=== PATIENT | male | born 1970 | race Caucasian/White ===

== ENCOUNTER 2019-07-15 17:32 | Inpatient (IN) | payer BC ==
[2019-07-15] MEDS ORDERED: NITROGLYCERIN (SL) 0.4 MG TAB SL ×2 (19:00→21:30)
[2019-07-15] MEDS: ONDANSETRON 4 MG INJ IV (19:11)
[2019-07-15] MEDS: morphine 4 MG/ML VIAL IV (19:12)
[2019-07-15] MEDS: FUROSEMIDE 40 MG INJ IV (19:12)
[2019-07-15] MEDS: ASPIRIN 81 MG TAB PO (19:12)
[2019-07-15] MEDS: NITROGLYCERIN 2% 1 GM OINT PKT TD (19:13)
[2019-07-15] MEDS ORDERED: ONDANSETRON 4 MG INJ IV ×2 (19:30→21:30)
[2019-07-15] MEDS ORDERED: ACETAMINOPHEN 325 MG TAB PO ×2 (19:30→21:30)
[2019-07-15] MEDS ORDERED: NACL 0.9% 3 ML SYG IV (21:30)
[2019-07-15] MEDS ORDERED: DOCUSATE SODIUM 100 MG CAP PO (21:30)
[2019-07-15] MEDS ORDERED: GLUCAGON 1 MG INJ IM (22:00)
[2019-07-15] MEDS ORDERED: DEXTROSE 50% 50 ML SYRINGE IV ×2 (22:00)
[2019-07-15] MEDS ORDERED: GLUCOSE GEL 15 GRAM TUBE PO ×2 (22:00)
[2019-07-15] MEDS ORDERED: GLUCOSE GEL 15 GRAM TUBE BUCCAL (22:00)
[2019-07-16] MEDS: ACCU-CHEK XX (02:00)
[2019-07-16] MEDS ORDERED: ACCU-CHEK XX (02:00)
[2019-07-16] MEDS: morphine 2 MG INJ IV ×3 (03:04→20:48)
[2019-07-16] MEDS: POLYETHYLENE GLYCOL 17 GM PACKET PO ×2 (03:05→17:24)
[2019-07-16] MEDS: DOCUSATE SODIUM 100 MG CAP PO (03:05)
[2019-07-16] MEDS: CEFTRIAXONE 1 GM/50 ML (PMX) 50 ML IVPB (03:06)
[2019-07-16] MEDS: SOD CHLORIDE 0.9% 100 ML (03:16)
[2019-07-16] MEDS: IOHEXOL 300MG/ML 30 ML BTL (03:16)
[2019-07-16] MEDS: FUROSEMIDE 20 MG INJ IV ×2 (05:55→17:24)
[2019-07-16] MEDS ORDERED: FUROSEMIDE 20 MG INJ IV (06:00)
[2019-07-16] MEDS ORDERED: INSULIN ASPART [NOVOLOG] 3 ML PEN SC (08:00)
[2019-07-16] MEDS: MAGNESIUM SULFATE 4 GM/100 ML 100 ML IVPB (08:12)
[2019-07-16] MEDS: ASPIRIN 81 MG TAB PO (08:12)
[2019-07-16] MEDS: ENOXAPARIN 40 MG/0.4 ML SYG SC (08:25)
[2019-07-16] MEDS ORDERED: INSULIN GLARGINE [LANTus] (100 UNITS/ML) SYG SC ×2 (09:00)
[2019-07-16] MEDS: INSULIN ASPART [NOVOLOG] 3 ML PEN SC ×4 (09:22→20:45)
[2019-07-16] MEDS: INSULIN GLARGINE [LANTus] (100 UNITS/ML) SYG SC (15:20)
[2019-07-16] MEDS: LISINOPRIL 5 MG TAB PO (15:21)
[2019-07-16] MEDS: ATORVASTATIN 40 MG TAB PO (20:41)
[2019-07-16] MEDS: GABAPENTIN 300 MG CAP PO (20:41)
[2019-07-17] MEDS: ACCU-CHEK XX ×4 (01:15→20:27)
[2019-07-17] MEDS: CEFTRIAXONE 1 GM/50 ML (PMX) 50 ML IVPB (01:47)
[2019-07-17] MEDS: FUROSEMIDE 20 MG INJ IV ×2 (05:24→17:11)
[2019-07-17] MEDS: INSULIN ASPART [NOVOLOG] 3 ML PEN SC ×4 (08:00→20:26)
[2019-07-17] MEDS: POLYETHYLENE GLYCOL 17 GM PACKET PO (08:42)
[2019-07-17] MEDS: morphine 2 MG INJ IV ×2 (08:42→20:17)
[2019-07-17] MEDS: ASPIRIN 81 MG TAB PO (08:42)
[2019-07-17] MEDS: LISINOPRIL 5 MG TAB PO (08:42)
[2019-07-17] MEDS: ENOXAPARIN 40 MG/0.4 ML SYG SC (08:49)
[2019-07-17] MEDS: MAGNESIUM HYDROXIDE 30ML CUP PO (10:00)
[2019-07-17] MEDS: INSULIN GLARGINE [LANTus] (100 UNITS/ML) SYG SC (10:51)
[2019-07-17] MEDS: BISACODYL (EC) 5 MG TAB PO (11:49)
[2019-07-17] MEDS: metFORMIN 500 MG TAB PO (17:11)
[2019-07-17] MEDS: GABAPENTIN 300 MG CAP PO (20:17)
[2019-07-17] MEDS: ATORVASTATIN 40 MG TAB PO (20:17)
[2019-07-17] MEDS: DOCUSATE SODIUM 100 MG CAP PO (20:18)
[2019-07-18] MEDS: CEFTRIAXONE 1 GM/50 ML (PMX) 50 ML IVPB (02:25)
[2019-07-18] MEDS: ACCU-CHEK XX ×5 (02:25→20:59)
[2019-07-18] MEDS: FUROSEMIDE 20 MG INJ IV (06:15)
[2019-07-18] MEDS: INSULIN ASPART [NOVOLOG] 3 ML PEN SC ×4 (07:32→20:59)
[2019-07-18] MEDS: POLYETHYLENE GLYCOL 17 GM PACKET PO (08:07)
[2019-07-18] MEDS: ASPIRIN 81 MG TAB PO (08:07)
[2019-07-18] MEDS: DOCUSATE SODIUM 100 MG CAP PO ×2 (08:07→20:53)
[2019-07-18] MEDS: metFORMIN 500 MG TAB PO ×2 (08:08→17:40)
[2019-07-18] MEDS: LISINOPRIL 5 MG TAB PO (08:09)
[2019-07-18] MEDS: ENOXAPARIN 40 MG/0.4 ML SYG SC (08:14)
[2019-07-18] MEDS: INSULIN GLARGINE [LANTus] (100 UNITS/ML) SYG SC (09:53)
[2019-07-18] MEDS: SPIRONOLACTONE 25 MG TAB PO (12:42)
[2019-07-18] MEDS: morphine 2 MG INJ IV ×2 (12:43→22:08)
[2019-07-18] MEDS: GABAPENTIN 300 MG CAP PO (20:53)
[2019-07-18] MEDS: ATORVASTATIN 40 MG TAB PO (20:54)
[2019-07-19] MEDS: CEFTRIAXONE 1 GM/50 ML (PMX) 50 ML IVPB (01:43)
[2019-07-19] MEDS: ACCU-CHEK XX ×5 (01:43→21:12)
[2019-07-19] MEDS: INSULIN ASPART [NOVOLOG] 3 ML PEN SC ×4 (08:00→21:24)
[2019-07-19] MEDS: metFORMIN 500 MG TAB PO (08:00)
[2019-07-19] MEDS: POLYETHYLENE GLYCOL 17 GM PACKET PO (08:41)
[2019-07-19] MEDS: LISINOPRIL 5 MG TAB PO (08:42)
[2019-07-19] MEDS: FUROSEMIDE 20 MG INJ IV ×2 (08:42→21:09)
[2019-07-19] MEDS: ASPIRIN 81 MG TAB PO (08:42)
[2019-07-19] MEDS: DOCUSATE SODIUM 100 MG CAP PO ×2 (08:42→21:08)
[2019-07-19] MEDS: SPIRONOLACTONE 25 MG TAB PO (08:42)
[2019-07-19] MEDS: ENOXAPARIN 40 MG/0.4 ML SYG SC (08:43)
[2019-07-19] MEDS: INSULIN GLARGINE [LANTus] (100 UNITS/ML) SYG SC (08:44)
[2019-07-19] MEDS: morphine 2 MG INJ IV ×2 (08:53→18:37)
[2019-07-19] MEDS ORDERED: IODIXANOL LOCM 100 ML BTL (10:03)
[2019-07-19] MEDS ORDERED: VERAPAMIL 5 MG INJ (10:03)
[2019-07-19] MEDS ORDERED: FENTAnyl 50 MCG/ML VIAL (10:03)
[2019-07-19] MEDS ORDERED: HEPARIN 1000 UNITS/ML 10 ML INJ (10:03)
[2019-07-19] MEDS ORDERED: MIDAZOLAM 1 MG/ML 2 ML INJ (10:03)
[2019-07-19] MEDS ORDERED: LIDOCAINE 1% (MDV) 20 ML INJ (10:03)
[2019-07-19] MEDS ORDERED: SOD CHLORIDE 0.9% 500 ML (11:04)
[2019-07-19] MEDS ORDERED: NITROGLYCERIN (IC) 100 MCG/ML INJ (11:04)
[2019-07-19] MEDS: ATORVASTATIN 40 MG TAB PO (21:08)
[2019-07-19] MEDS: GABAPENTIN 300 MG CAP PO (21:08)
[2019-07-20] MEDS: morphine 2 MG INJ IV ×4 (01:27→21:27)
[2019-07-20] MEDS: CEFTRIAXONE 1 GM/50 ML (PMX) 50 ML IVPB (02:21)
[2019-07-20] MEDS: ACCU-CHEK XX ×5 (02:26→21:18)
[2019-07-20] MEDS ORDERED: NORepinephrine 8MG/250 ML (PMX 250 ML IV (07:00)
[2019-07-20] MEDS ORDERED: HEPARIN (10000 UNITS/ML) 10,000 UNIT, MILRINONE LACTATE 10 MG in SOD CHLORIDE 0.9% 1,00... SC (07:00)
[2019-07-20] MEDS ORDERED: INSULIN HUMAN REGULAR 100 UNIT in SOD CHLORIDE 0.9% 99 ML IVPB (07:00)
[2019-07-20] MEDS ORDERED: EPINEPHrine 4 MG in DEXTROSE 5% 246 ML IV (07:00)
[2019-07-20] MEDS ORDERED: MILRINONE LACTATE 2 MG in SOD CHLORIDE 0.9% 50 ML IV (07:00)
[2019-07-20] MEDS ORDERED: PHENYLephrine 20MG IN 250 ML 250 ML IV (07:00)
[2019-07-20] MEDS ORDERED: ASPIRIN 600 MG SUPP PR (07:00)
[2019-07-20] MEDS: INSULIN GLARGINE [LANTus] (100 UNITS/ML) SYG SC ×2 (08:00→15:40)
[2019-07-20] MEDS: INSULIN ASPART [NOVOLOG] 3 ML PEN SC ×6 (08:19→21:00)
[2019-07-20] MEDS: ASPIRIN 81 MG TAB PO (09:12)
[2019-07-20] MEDS: SPIRONOLACTONE 25 MG TAB PO (09:12)
[2019-07-20] MEDS: POLYETHYLENE GLYCOL 17 GM PACKET PO (09:13)
[2019-07-20] MEDS: DOCUSATE SODIUM 100 MG CAP PO ×2 (09:13→21:26)
[2019-07-20] MEDS: FUROSEMIDE 20 MG INJ IV (09:14)
[2019-07-20] MEDS: ENOXAPARIN 40 MG/0.4 ML SYG SC (09:19)
[2019-07-20] MEDS: LISINOPRIL 5 MG TAB PO (10:58)
[2019-07-20] MEDS: metroNIDAZOLE 500 MG TAB PO ×2 (13:23→21:26)
[2019-07-20] MEDS: GABAPENTIN 300 MG CAP PO (21:26)
[2019-07-20] MEDS: ATORVASTATIN 40 MG TAB PO (21:26)
[2019-07-21] MEDS: ACCU-CHEK XX ×3 (02:00→11:30)
[2019-07-21] MEDS: CEFTRIAXONE 1 GM/50 ML (PMX) 50 ML IVPB (02:24)
[2019-07-21] MEDS: morphine 2 MG INJ IV ×2 (02:32→08:35)
[2019-07-21] MEDS: metroNIDAZOLE 500 MG TAB PO ×2 (05:45→13:37)
[2019-07-21] MEDS ORDERED: INSULIN GLARGINE [LANTus] (100 UNITS/ML) SYG SC (08:00)
[2019-07-21] MEDS: INSULIN ASPART [NOVOLOG] 3 ML PEN SC ×4 (08:00→11:44)
[2019-07-21] MEDS: INSULIN GLARGINE [LANTus] (100 UNITS/ML) SYG SC (08:14)
[2019-07-21] MEDS: LISINOPRIL 5 MG TAB PO (08:23)
[2019-07-21] MEDS: FUROSEMIDE 40 MG TAB PO (08:23)
[2019-07-21] MEDS: ASPIRIN 81 MG TAB PO (08:23)
[2019-07-21] MEDS: DOCUSATE SODIUM 100 MG CAP PO (08:24)
[2019-07-21] MEDS: SPIRONOLACTONE 25 MG TAB PO (08:24)
[2019-07-21] MEDS: POLYETHYLENE GLYCOL 17 GM PACKET PO (08:24)
[2019-07-21] MEDS: ENOXAPARIN 40 MG/0.4 ML SYG SC (08:26)
== END 2019-07-21 16:25 | disposition home or self-care (01) | DRG 286 ==
LOC: 6WM 19:05 → E/R 17:32
PROC: 4A023N7 Measurement of Cardiac Sampling and Pressure, Left Heart, Percutaneous Approach (ICD-10-PCS; principal; 2019-07-19 09:00)
PROC: B211YZZ Fluoroscopy of Multiple Coronary Arteries using Other Contrast (ICD-10-PCS; 2019-07-19 09:00)
DX: I11.0 Hypertensive heart disease with heart failure (principal); I50.21 Acute systolic (congestive) heart failure; N39.0 Urinary tract infection, site not specified; I42.0 Dilated cardiomyopathy; E83.42 Hypomagnesemia; J98.4 Other disorders of lung; I25.10 Atherosclerotic heart disease of native coronary artery without angina pectoris; E11.9 Type 2 diabetes mellitus without complications; E78.5 Hyperlipidemia, unspecified; I25.5 Ischemic cardiomyopathy; F17.210 Nicotine dependence, cigarettes, uncomplicated; R10.31 Right lower quadrant pain; K59.09 Other constipation; K52.9 Noninfective gastroenteritis and colitis, unspecified; E66.9 Obesity, unspecified; Z68.30 Body mass index [BMI] 30.0-30.9, adult; Z79.4 Long term (current) use of insulin; Z79.82 Long term (current) use of aspirin
CPT/HCPCS: 36415; 71045; 71260; 74176; 74177; 80048; 80053; 80061; 80307; 81001; 82550; 82553; 82962; 83036; 83690; 83735; 83880; 84100; 84443; 84484; 85025; 85651; 86803; 87086; 87340; 93005; 93306; 93458; 99285-25; G0378